=== PATIENT | male | born 1985 | race Caucasian/White ===

== ENCOUNTER 2017-01-28 20:36 | Emergency (ER) | payer MEDICAID ==
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
[2017-01-28 21:11] LABS: ABSOLUTE BASOPHILS # (AUTO) 0.1 10^3/uL (0.0-0.2); ABSOLUTE EOSINOPHILS # (AUTO) 0.2 10^3/uL (0.0-0.6); ABSOLUTE LYMPHOCYTES (AUTO) 1.8 10^3/uL (0.5-4.7); ABSOLUTE MONOCYTES (AUTO) 0.9 10^3/uL (0.1-1.4); BASOPHILS % (AUTO) 0.9 % (0-2); EOSINOPHILS % (AUTO) 2.1 % (0-6); HEMATOCRIT 42.1 % (37.9-51.0); HEMOGLOBIN 13.8 g/dL (13.5-17.0); HGB HCT DIFFERENCE -0.7; LYMPHOCYTES % (AUTO) 18.3 % (13-45); MEAN CORPUSCULAR HEMOGLOBIN 29.5 pg (27.0-33.4); MEAN CORPUSCULAR HGB CONC 32.8 g/dL (32.0-36.0); MEAN CORPUSCULAR VOLUME 90 fl (80-97); MONOCYTES % (AUTO) 9.3 % (3-13); RED BLOOD COUNT 4.68 10^6/uL (4.35-5.55); SEGMENTED NEUTROPHILS % (AUTO) 69.4 % (42-78)
[2017-01-28 21:30] LABS: ALANINE AMINOTRANSFERASE 27 U/L (21-72); ALBUMIN 4.5 g/dL (3.5-5.0); ALCOHOL < 10 mg/dL (NONE DETECTED); ALKALINE PHOSPHATASE 47 U/L (38-126); ANION GAP 13 (5-19); ASPARTATE AMINO TRANSFERASE 26 U/L (17-59); BILIRUBIN,DIRECT 0.3 mg/dL (0.0-0.4); BILIRUBIN,TOTAL 0.5 mg/dL (0.2-1.3); BLOOD UREA NITROGEN 14 mg/dL (7-20); CALCIUM 9.7 mg/dL (8.4-10.2); CARBON DIOXIDE 26 mmol/L (22-30); CHLORIDE 106 mmol/L (98-107); CREATININE RESULT 0.92 mg/dL (0.52-1.25); GLUCOSE 82 mg/dL (75-110); SODIUM 144.8 mmol/L (137-145); TOTAL PROTEIN 7.3 g/dL (6.3-8.2)
--- NOTE | 2017-01-29 03:57 | EKG REPORT ---
SEVERITY:- OTHERWISE NORMAL ECG - SINUS RHYTHM ATRIAL PREMATURE COMPLEX : Confirmed by: Rabia Franklin MD 29-Jan-2017 03:56:15
[2017-01-29 10:10] LABS: AMORPHOUS SEDIMENT,URINE 1+ /HPF; APPEARANCE,URINE TURBID; BILIRUBIN,URINE NEGATIVE (NEGATIVE); GLUCOSE, URINE NEGATIVE (NEGATIVE); KETONES,URINE TRACE mg/dL (NEGATIVE); LEUKOCYTE ESTERASE,URINE NEGATIVE (NEGATIVE); NITRITE,URINE NEGATIVE (NEGATIVE); PROTEIN,URINE 30 mg/dL (NEGATIVE); UROBILINOGEN,URINE NEGATIVE mg/dL (<2.0)
[2017-01-29 10:33] LABS: URINE BARBITURATES SCREEN NEGATIVE; URINE METHADONE SCREEN NEGATIVE; URINE OPIATES LOW NEGATIVE; URINE PHENCYCLIDINE SCREEN NEGATIVE
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
--- NOTE | 2017-01-29 18:57 | ER Document Report ---
Doctor's Note Notes: 01/29/17 18:56 Patient seen and evaluated at the bedside pending placement. Patient states that he has no current concerns he is medically clear and is stable on medications. He currently denies anything that he wants or needs in addition to what he is receiving. Nurse has not had problems with him throughout the day.
--- NOTE | 2017-01-30 09:23 | ER Document Report ---
Doctor's Note Notes: 01/30/17 09:23 Lab work vital signs have been reviewed. At this time patient is currently stable with no overnight events requiring no intervention at this time. Patient stable for transfer or other disposition
[2017-01-30] MEDS ORDERED: OLANZAPINE 5 MG TAB.RAPDIS PO ONE (14:30)
[2017-01-30] MEDS ORDERED: BENZTROPINE MESYLATE 1 MG TABLET PO ONE (14:30)
[2017-01-30] MEDS: OLANZAPINE 5 MG TABLET PO SCH (21:48)
--- NOTE | 2017-01-31 09:23 | ER Document Report ---
Doctor's Note Notes: 01/31/17 09:23 Lab work vital signs have been reviewed. At this time patient is currently stable with no overnight events requiring no intervention at this time. Patient stable for transfer or other disposition
[2017-01-31] MEDS: OLANZAPINE 5 MG TABLET PO SCH ×2 (10:54→22:05)
[2017-02-01] MEDS ORDERED: IBUPROFEN 800 MG TABLET PO ONE (02:03)
[2017-02-01] MEDS: OLANZAPINE 5 MG TABLET PO SCH ×2 (11:22→22:03)
[2017-02-01] MEDS: IBUPROFEN 600 MG TABLET PO PRN ×2 (12:48→22:03)
--- NOTE | 2017-02-01 20:08 | ER Document Report ---
Doctor's Note Notes: 02/01/17 20:07 Resting comfortably on stretcher throughout the day, no complaints at time of my evaluation, he did complain of foot pain earlier and reports a history of gout, reports the Motrin resolved his symptoms, he is pending likely placement in a mental health facility, we will continue to monitor patient in the emergency room until arrangements can be made
--- NOTE | 2017-02-02 09:17 | ER Document Report ---
Doctor's Note Notes: 02/02/17 09:16 I have evaluated this patient this am and has no c/o at this time. Feels all of their needs are being met and physical exam is normal. Awaiting dispositon per mental health. 02/02/17 11:02 [facility] under the care of Dr. Lorenz. He will be transported by EMS. Stable for transport.
[2017-02-02] MEDS: OLANZAPINE 5 MG TABLET PO SCH (10:38)
[2017-02-02] MEDS: IBUPROFEN 600 MG TABLET PO PRN (10:43)
[2017-02-02 14:37] VITALS: BP 126/74
== END 2017-02-02 12:16 ==
LOC: ER 20:36
DX: R45.851 Suicidal ideations (principal); F22 Delusional disorders; F41.9 Anxiety disorder, unspecified; M79.673 Pain in unspecified foot; Z63.72 Alcoholism and drug addiction in family; Z88.0 Allergy status to penicillin; F17.210 Nicotine dependence, cigarettes, uncomplicated
CPT/HCPCS: 93005; 99284; 36415; 80307 ×4; 85025; 80053; 81001; 93010; J3490 ×5